=== PATIENT | female | born 1980 | race Caucasian/White ===

== ENCOUNTER 2022-03-15 08:00 | Outpatient (RCR) | payer MEDICAID, SELFPAY | END 2022-04-12 11:41 | disposition home or self-care (01) | LOC: HO.PT 08:00 | PROVIDERS: PCP Internal Medicine; Visit Provider Internal Medicine | DX: N39.3 Stress incontinence (female) (male) (principal) | CPT/HCPCS: 97110; 97112; 97140; 97161 ==